=== PATIENT | male | born 1995 | race African-American/Black ===

== ENCOUNTER 2019-10-29 04:36 | Day surgery (SDC) | payer OTHER ==
[2019-10-28 10:36] VITALS: BMI 29.8
[2019-10-29] MEDS ORDERED: MIDAZOLAM HCL 2 MG/2 ML SINGLE DOSE VIAL ONE (09:38)
[2019-10-29] MEDS ORDERED: PROPOFOL 20 ML ONE ×2 (09:38→10:13)
[2019-10-29] MEDS ORDERED: LIDOCAINE HCL/PF 2% SDV 5ML VIAL ONE (09:38)
[2019-10-29] MEDS ORDERED: ACETAMINOPHEN 1000 MG/100 ML VIAL (NON FORMULARY) IVPB ONE (10:04)
--- NOTE | 2019-10-29 10:06 | HP ---
History & Physical Update - History History: No Change - Physical Physical: No Change - Assessment Assessment: No Change - Plan Plan: No Change
[2019-10-29] MEDS ORDERED: DEXTROSE 5%-0.45% SALINE 1,000 ML IV SCH (10:15)
[2019-10-29] MEDS ORDERED: ceFAZolin SODIUM 1 GM VIAL ONE (10:22)
[2019-10-29] MEDS ORDERED: ceFAZolin SODIUM 1 GM VIAL IVPB ONE (10:22)
[2019-10-29] MEDS ORDERED: ONDANSETRON 4 MG/2 ML VIAL IVPUSH PRN (11:16)
[2019-10-29] MEDS ORDERED: oxyCODONE HCL 5 MG TABLET PO PRN ×2 (11:16)
[2019-10-29] MEDS ORDERED: LACTATED RINGERS SOLUTION 1,000 ML IV SCH (11:30)
--- NOTE | 2019-10-29 12:32 | OP ---
DATE OF OPERATION: 10/29/2019 PREOPERATIVE DIAGNOSIS: Gross hematuria. POSTOPERATIVE DIAGNOSIS: Gross hematuria. PROCEDURE: Cystoscopy, bilateral retrograde pyelograms, and fulguration of prostate. ANESTHESIA: General, Carlos Parmar MD FINDINGS: Bladder is normal. Both retrograde pyelograms are normal. Vascular prostatic fossa was fulgurated. SPECIMEN: None. DRAINS: None. ESTIMATED BLOOD LOSS: None. 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. He has had a few episodes of exercise-induced gross hematuria over the last year. Imaging studies and cystoscopy in the office have been normal; however, he has had persistent gross hematuria, comes to the OR today for further investigation. DESCRIPTION OF PROCEDURE: Patient was brought to the OR, placed on the table in the supine position, given general anesthesia and IV antibiotics and placed in the modified lithotomy position. The groin was prepped and draped sterilely. Timeout was performed. Cystoscopy was performed. Distal urethra appeared to be normal. The urinary sphincter was seen and also was normal. The prostatic fossa was examined. There was no obstruction. There was some vascularity at the bladder neck; however, nothing beyond normal for his age. Cystoscopy was then performed. The bladder itself was completely normal. There were no tumors or stones seen, normal vascularity of the bladder mucosa. Both UOs were visualized, and clear efflux was observed from both sides. Retrograde pyelograms were performed for the entire length of the ureter and the upper collecting system. No evidence of defects was seen either on the right or the left side. Images were sent for radiological confirmation. Due to some vascularity at the bladder neck, a Bugbee electrode was used and fulgurated in a limited fashion at the bladder neck. No bleeding was seen at the end of the procedure. The bladder was emptied, the scope was removed, the patient was woken up. Result of the report is a normal cystoscopy, normal retrograde pyelograms. No evidence of any cancer or stones. RAJI VANN M.D. [id number]
[2019-10-29] MEDS ORDERED: oxyCODONE HCL 5 MG TABLET PO ONE (12:46)
[2019-10-29 13:41] VITALS: BP 140/75; PULSE 64; TEMP 97.8
== END 2019-10-29 13:35 | disposition home or self-care (01) ==
LOC: JASU-SURG 04:36
PROVIDERS: ATTEND Urology
PROC: 0V508ZZ Destruction of Prostate, Via Natural or Artificial Opening Endoscopic (ICD-10-PCS; 2019-10-29)
PROC: BT14YZZ Fluoroscopy of Kidneys, Ureters and Bladder using Other Contrast (ICD-10-PCS; 2019-10-29)
PROC: 0V508ZZ Destruction of Prostate, Via Natural or Artificial Opening Endoscopic (ICD-10-PCS; principal; 2019-10-29 10:00)
DX: R31.0 Gross hematuria (principal)
CPT/HCPCS: 76000-TC-FY; 94760; J0131